=== PATIENT | male | born 1945 | race Native Hawaiian/Other Pacific Islander ===

== ENCOUNTER → 2020-06-15 | Outpatient (CLI) | payer MEDICARE ==
[~2020-06-15] MED LIST: LIDOCAINE 1% INJ 20 ML 20 ML VIAL INJ ONE
--- NOTE | 2020-06-15 14:05 | Diagnostic Imaging Report ---
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 Patient presented for biopsy of left neck palpable lump. Patient however states that the lump is much improved over the last 6 weeks. Imaging of this area does show a fairly simple appearing cyst in the left para-midline neck projected above the thyroid. This measures 15 mm x 10 mm x 6 mm. No internal vascularity is seen. IMPRESSION: Small cysts at the area of palpable abnormality left neck. Due to the benign nature of this lesion as well as the patient stating that the nodule has gotten much smaller, biopsy was not performed. Additional follow-up of this area with ultrasound is recommended in 2-3 months to show continued stability. Dictated by: Dictated on workstation # [id number]
== END ==
LOC: RAD 12:41
PROVIDERS: ATTEND Otolaryngology Otolaryngology/Facial Plastic Surgery
DX: C32.9 Malignant neoplasm of larynx, unspecified (principal); R22.1 Localized swelling, mass and lump, neck
CPT/HCPCS: 76536